=== PATIENT | male | born 1995 | race Two or more races ===

== ENCOUNTER 2020-09-10 01:57 | Inpatient (IN) | payer MEDICAID, OTHER ==
[~2020-09-10] VITALS: Ht 180.3 cm; Wt 109.9 kg
[2020-09-10 03:14] LABS: Basophils # (auto) 0.1 10 ^3/uL (0-0.2); Basophils % (auto) 0.7 % (0.0-2.0); Eosinophils # (auto) 0.1 10 ^3/uL (0-0.8); Hematocrit 42.3 % (41.0-53.0); Hemoglobin 14.9 g/dL (13.5-17.5); Lymphocytes # (auto) 1.7 10 ^3/uL (0.4-5.4); Lymphocytes % (auto) 14.3 % (10.0-50.0); Mean Corpuscular Hemoglobin 29.1 pg (28.0-32.0); Mean Corpuscular Hgb Conc. 35.1 g/dL (32.0-36.0); Mean Corpuscular Volume 82.9 fL (80.0-100.0); Monocytes # (auto) 0.6 10 ^3/uL (0-1.3); Monocytes % (auto) 5.4 % (0.0-12.0); Neutrophils # (auto) 9.2 10 ^3/uL (1.6-8.6); Neutrophils % (auto) 78.6 % (37.0-80.0); Nucleated Red Blood Cells % 0.1 %; Platelet Count (auto) 374 10^3/uL (140-450); Red Cell Distribution Width 13.2 % (11.8-14.3); White Blood Cell 11.7 10^3/uL (4.4-10.8)
[2020-09-10 03:25] LABS: Albumin 4.1 g/dL (3.4-5.0); Calcium 8.7 mg/dL (8.5-10.1); Potassium 4.2 mmol/L (3.5-5.1)
[2020-09-10 03:29] LABS: BUN/Creatinine Ratio 15.7; Bilirubin, Total 0.3 mg/dL (0.2-1.0); Total Protein 7.9 g/dL (6.4-8.2)
[2020-09-10] MEDS ORDERED: SODIUM CHLORIDE 0.9% 500 ML IV ONE (06:45)
[2020-09-10] MEDS ORDERED: PIPERACILLIN-TAZOB 3.375GM 100 ML IV ONE (06:45)
[2020-09-10] MEDS ORDERED: ACETAMINOPHEN 500 MG TAB PO PRN (09:00)
[2020-09-10] MEDS ORDERED: ONDANSETRON HCL 4 MG/2 ML VIAL IV PRN (09:00)
[2020-09-10] MEDS ORDERED: HYDROcodone-ACET 5/325MG TAB PO PRN (09:00)
[2020-09-10] MEDS ORDERED: MORPHINE SULF INJ 2 MG/ML SYRINGE 1ML IV PRN (09:00)
[2020-09-10 09:23] LABS: Urine Amorphous Crystal FEW /hpf (None Seen); Urine Bacteria FEW /hpf (None Seen); Urine Blood Negative /uL (Negative); Urine Mucus FEW (None Seen); Urine Specific Gravity 1.021 (1.001-1.035); Urine WBC 9 /hpf (0 - 3)
[2020-09-10] MEDS: SODIUM CHLORIDE 0.9% 1,000 ML IV SCH (10:00)
[2020-09-10] MEDS: cefTRIAXone 1GM/50ML D5W 50 ML IV SCH (10:00)
[2020-09-10] MEDS: FAMOTIDINE (10MG/ML) 2ML VL IV SCH (10:04)
[2020-09-10 10:14] LABS: INR 1.05 (0.9-1.15); Partial Thromboplastin Time 28.2 sec (23.0-31.2)
[2020-09-10] MEDS: metroNIDAZOLE 500MG/100ML 100 ML IV SCH ×2 (14:00→21:33)
[2020-09-10 23:30] VITALS: BP 116/65
[2020-09-11] MEDS: SODIUM CHLORIDE 0.9% 1,000 ML IV SCH ×2 (01:00→08:56)
[2020-09-11 05:30] VITALS: BP 106/55
[2020-09-11] MEDS: metroNIDAZOLE 500MG/100ML 100 ML IV SCH ×2 (06:14→13:51)
[2020-09-11 08:00] VITALS: BP 116/71
[2020-09-11 08:07] LABS: Basophils # (auto) 0.1 10 ^3/uL (0-0.2); Basophils % (auto) 0.7 % (0.0-2.0); Eosinophils # (auto) 0.3 10 ^3/uL (0-0.8); Eosinophils % (auto) 3.6 % (0.0-7.0); Hematocrit 41.3 % (41.0-53.0); Hemoglobin 14.3 g/dL (13.5-17.5); Lymphocytes % (auto) 25.2 % (10.0-50.0); Mean Corpuscular Hemoglobin 28.9 pg (28.0-32.0); Mean Corpuscular Hgb Conc. 34.8 g/dL (32.0-36.0); Monocytes # (auto) 0.7 10 ^3/uL (0-1.3); Monocytes % (auto) 8.4 % (0.0-12.0); Neutrophils # (auto) 4.9 10 ^3/uL (1.6-8.6); Neutrophils % (auto) 62.1 % (37.0-80.0); Nucleated Red Blood Cells % 0.1 %; Platelet Count (auto) 348 10^3/uL (140-450); Red Blood Cells 4.97 10^6/uL (4.5-5.90); Red Cell Distribution Width 13.2 % (11.8-14.3); White Blood Cell 7.8 10^3/uL (4.4-10.8)
[2020-09-11 08:26] LABS: Calcium 8.4 mg/dL (8.5-10.1); Potassium 3.9 mmol/L (3.5-5.1)
[2020-09-11 08:30] VITALS: BP 116/71
[2020-09-11 08:30] LABS: BUN/Creatinine Ratio 10.8
[2020-09-11] MEDS: cefTRIAXone 1GM/50ML D5W 50 ML IV SCH (08:56)
[2020-09-11] MEDS: FAMOTIDINE (10MG/ML) 2ML VL IV SCH (08:56)
[2020-09-11 16:00] VITALS: BP 137/69
[2020-09-11 17:15] VITALS: BP 137/69
== END 2020-09-11 19:00 | disposition home or self-care (01) ==
LOC: ER 01:58 → OVERFLOW 01:59 → CENTRAL 22:49
PROVIDERS: ADMIT Nurse Practitioner Acute Care; ATTEND Family Medicine
DX: K80.00 Calculus of gallbladder with acute cholecystitis without obstruction (principal); D72.829 Elevated white blood cell count, unspecified; E66.9 Obesity, unspecified; J45.909 Unspecified asthma, uncomplicated; Z20.822 Contact with and (suspected) exposure to COVID-19; Z68.30 Body mass index [BMI] 30.0-30.9, adult
CPT/HCPCS: 36415; 71045; 74176; 76705; 80048; 80053; 81001; 82150; 83690; 85025; 85610; 85730; 86850; 86900; 86901; 87040; 87426; 93005; 96361; 96365; G0378; J0696; J2543; J3490

== ENCOUNTER 2020-09-27 23:27 | Emergency (ER) | payer MEDICAID ==
[~2020-09-27] VITALS: Ht 177.8 cm; Wt 104.3 kg
[2020-09-28] MEDS ORDERED: ONDANSETRON HCL 4 MG/2 ML VIAL IV ONE (05:45)
[2020-09-28 07:33] LABS: Basophils # (auto) 0.1 10 ^3/uL (0-0.2); Basophils % (auto) 0.6 % (0.0-2.0); Eosinophils # (auto) 0.1 10 ^3/uL (0-0.8); Eosinophils % (auto) 0.9 % (0.0-7.0); Hematocrit 42.4 % (41.0-53.0); Hemoglobin 14.6 g/dL (13.5-17.5); Lymphocytes # (auto) 1.8 10 ^3/uL (0.4-5.4); Lymphocytes % (auto) 17.3 % (10.0-50.0); Mean Corpuscular Hemoglobin 29.1 pg (28.0-32.0); Mean Corpuscular Hgb Conc. 34.4 g/dL (32.0-36.0); Mean Corpuscular Volume 84.6 fL (80.0-100.0); Monocytes # (auto) 0.7 10 ^3/uL (0-1.3); Monocytes % (auto) 7.2 % (0.0-12.0); Neutrophils # (auto) 7.7 10 ^3/uL (1.6-8.6); Nucleated Red Blood Cells % 0.1 %; Platelet Count (auto) 354 10^3/uL (140-450); Red Blood Cells 5.01 10^6/uL (4.5-5.90); Red Cell Distribution Width 13.3 % (11.8-14.3); White Blood Cell 10.4 10^3/uL (4.4-10.8)
[2020-09-28 07:56] LABS: Calcium 8.7 mg/dL (8.5-10.1); Potassium 4.1 mmol/L (3.5-5.1)
[2020-09-28 08:02] LABS: BUN/Creatinine Ratio 12.7; Bilirubin, Total 0.3 mg/dL (0.2-1.0); Magnesium 2.2 mg/dL (1.6-2.6); Total Protein 7.5 g/dL (6.4-8.2)
[2020-09-28 11:49] VITALS: BP 127/69
== END 2020-09-28 11:50 | disposition home or self-care (01) ==
LOC: ER 23:28
DX: K80.20 Calculus of gallbladder without cholecystitis without obstruction (principal)
CPT/HCPCS: 36415; 76705; 80053; 83605; 83690; 83735; 85025

== ENCOUNTER 2023-01-13 04:39 | Emergency (ER) | payer MEDICAID ==
[~2023-01-13] VITALS: Ht 177.8 cm; Wt 111.4 kg
[2023-01-13 06:09] LABS: Basophils # (auto) 0.1 10 ^3/uL (0-0.2); Basophils % (auto) 0.6 % (0.0-2.0); Eosinophils # (auto) 0.1 10 ^3/uL (0-0.8); Eosinophils % (auto) 0.6 % (0.0-7.0); Hematocrit 45.2 % (41.0-53.0); Hemoglobin 15.5 g/dL (13.5-17.5); Lymphocytes # (auto) 1.6 10 ^3/uL (0.4-5.4); Lymphocytes % (auto) 12.5 % (10.0-50.0); Mean Corpuscular Hemoglobin 28.9 pg (28.0-32.0); Mean Corpuscular Hgb Conc. 34.3 g/dL (32.0-36.0); Mean Corpuscular Volume 84.3 fL (80.0-100.0); Monocytes # (auto) 0.5 10 ^3/uL (0-1.3); Monocytes % (auto) 4.2 % (0.0-12.0); Neutrophils # (auto) 10.2 10 ^3/uL (1.6-8.6); Neutrophils % (auto) 82.1 % (37.0-80.0); Nucleated Red Blood Cells % 0.1 %; Red Blood Cells 5.36 10^6/uL (4.5-5.90); Red Cell Distribution Width 13.2 % (11.8-14.3); White Blood Cell 12.5 10^3/uL (4.4-10.8)
[2023-01-13 06:22] LABS: Albumin 4.3 g/dL (3.4-5.0); Calcium 9.1 mg/dL (8.5-10.1); Magnesium 2.3 mg/dL (1.6-2.6)
[2023-01-13 06:26] LABS: BUN/Creatinine Ratio 13.3 (10.0-20.0); Bilirubin, Total 0.4 mg/dL (0.2-1.0); Total Protein 7.9 g/dL (6.4-8.2)
[2023-01-13] MEDS ORDERED: HYDR-4902 PO (06:48)
[2023-01-13] MEDS ORDERED: ONDA-144 PO (06:48)
[2023-01-13 07:27] VITALS: BP 147/82
== END 2023-01-13 07:32 | disposition home or self-care (01) ==
LOC: ER 04:39
DX: K80.20 Calculus of gallbladder without cholecystitis without obstruction (principal); Z79.899 Other long term (current) drug therapy
CPT/HCPCS: 36415; 80053; 82150; 83690; 83735; 85025